=== PATIENT | female | born 1990 | race Caucasian/White ===

== ENCOUNTER 2018-06-02 13:08 | Emergency (ER) | payer OTHER ==
[~2018-06-02] VITALS: Ht 160 cm; Wt 136.1 kg
[~2018-06-02 13:08] MED LIST: FLEXERIL PO; HYDROCODONE-AP1 EAC6 PO; IBUPROFEN 800800 M1 PO; MEDROLDOSEPACK PO; ZPAK PO
[2018-06-02] MEDS ORDERED: IBUPROFEN 800800 M1 PO (13:46)
[2018-06-02 14:00] VITALS: BP 140/98
== END 2018-06-02 14:01 | disposition home or self-care (01) ==
LOC: M.ERS 13:08
DX: M77.8 Other enthesopathies, not elsewhere classified (principal)